=== PATIENT | male | born 1955 | race Caucasian/White ===

== ENCOUNTER 2020-07-30 16:40 | Emergency (ER) | payer MEDICARE, OTHER, SELFPAY ==
[2020-07-30 16:41] VITALS: BP 165/88; PULSE 99; RESP 18; TEMP 36.3; O2SAT 96; BMI 47.6
[2020-07-30 16:43] VITALS: BP 165/88; PULSE 99; RESP 18; TEMP 36.3; O2SAT 96
--- NOTE | 2020-07-30 16:57 | ED.VIS.GEN ---
History of Present Illness Chief Complaint: Complaint Informant: Patient Onset: Days - 2 Days Context: Gradual Onset Current Severity: Mild Maximum Severity: Mild Narrative: Patient presents secondary to dysuria and urgency over the past 2 days. He states he started to notice some pain in his low back and went to be checked. He denies history of UTIs. He does not feel like he is emptying his bladder when he urinates. He denies fever or chills. Past Medical History - Allergies and Home Meds Allergies/Adverse Reactions: Allergies No Known Allergies Allergy (Verified 07/30/20 16:43) Primary Care Physician: Temi Silverman DO [Primary Care Provider] - Past Medical History: None Smoking Status: Never smoker Review of Systems General: Denies: Chills, Fever Eyes: Denies: Visual changes - bilaterally ENT: Denies: Bilateral ear pain Cardiovascular: Denies: Chest pain Respiratory: Denies: Dyspnea, Cough Gastrointestinal: Denies: Abdominal pain, Vomiting, Diarrhea Genitourinary: Reports: Dysuria, Frequency Musculoskeletal: Reports: Back pain Skin: Denies: Rash Hematologic: Denies: Easy bruising, Easy bleeding Allergy: Denies: Uticaria Physical Exam Vital Signs/Narrative: Vital Signs Temp Pulse Resp BP Pulse Ox 07/30/20 16:43 97.3 F L 99 18 165/88 H 96 07/30/20 16:41 97.3 F L 99 18 165/88 H 96 Inital Vital Signs reviewed: Yes General: Well nourished, Well developed Head: Normocephalic ENT: Moist mucous membranes Neck: Supple Cardiovascular: Regular rate, Regular rhythm Respiratory: No distress, CTA bilaterally Abdomen: Soft, Nontender Back: Nontender Skin: Normal color Neurological: Alert, Oriented x3 Psychological: Normal affect Diagnostic/Tx/Re-eval Laboratory Results 07/30/20 16:50 Urine Color Yellow Urine Clarity Cloudy Urine pH 6.0 Ur Specific [place] 1.015 Urine Protein 30 H Urine Glucose (UA) Normal Urine Ketones Negative Urine Occult Blood 250 H Urine Nitrite Negative Urine Bilirubin Negative Urine Urobilinogen Normal Ur Leukocyte Esterase 500 H Urine RBC 10-25 SEEN Urine WBC 50-100 SEEN Ur Squamous Epith Cells 0 SEEN Urine Bacteria 1+ Urine Mucus 0 SEEN - Medical Decision Making Urine culture was sent. Postvoid residual scan is unremarkable. Patient will be covered with Cipro for UTI. He does complain of some right flank pain so therefore antibiotic will be extended a couple extra days to help cover kidneys. ED Disposition - Plan for ED Patient: Disposition: Home or Assisted Living Diagnosis: Cystitis Instructions: ED CYSTITIS Male Adult Prescriptions: Ciprofloxacin [Cipro] 500 mg PO BID #14 tab Transmission Status: Pending to [id number] Referrals: Temi Silverman DO [Primary Care Provider] - 3-5 Days
[2020-07-30 17:07] LABS: Mucous, Urine 0 SEEN /hpf (<or=2+); Squamous Epithelial Cells - UA 0 SEEN /hpf (0-5)
[2020-07-30 17:22] LABS: Color, Urine Yellow (Yellow); Glucose, Dipstick Normal (Normal); Ketone-Dipstick Negative (Negative); Leukocyte Esterase-Dipstick 500 /ul (Negative); Nitrite-Dipstick Negative (Negative); Occult Blood-Urine 250 /ul (Negative); Protein-Dipstick 30 mg/dl (Negative); Specific Gravity, Urine 1.015 (1.002-1.030); Urine Bilirubin Dipstick Negative (Negative); Urine Clarity Cloudy (Clear); Urine Urobilinogen Normal (Normal)
[2020-07-30 17:46] LABS: Red Blood Cells-Urine 10-25 SEEN /hpf (0-5); White Blood Cells 50-100 SEEN /hpf (0-5)
[2020-07-30 17:47] LABS: Bacteria 1+ /hpf (None Seen)
[2020-07-30] MEDS: Ciprofloxacin 500 MG Tablet PO (18:23)
== END 2020-07-30 18:25 | disposition home or self-care (01) ==
PROVIDERS: Emergency Provider Emergency Medicine; PCP Internal Medicine
DX: N30.90 Cystitis, unspecified without hematuria (principal)
CPT/HCPCS: 81001; 87077; 87086; 87088; 87186; 99281; 99283

== ENCOUNTER 2023-02-13 07:45 | Emergency (ER) | payer MEDICARE, OTHER, SELFPAY ==
[2023-02-13 07:47] VITALS: BP 174/106; PULSE 113; RESP 18; TEMP 36.2; O2SAT 95; BMI 47.7
--- NOTE | 2023-02-13 08:12 | ED.VIS.CHEST ---
HPI History of Present Illness Chief Complaint: Shortness of Breath Informant: patient Onset/Context/Timing Onset: Today and Hours (1.5) Activity at onset: sudden Timing: Intermittent and Lasts (Seconds) Quality: Positive for Sharp Location: Substernal Worsened By: Breathing Relieved By: Nothing Associated Symptoms: Negative for Nausea, Vomiting, Diaphoresis, Dyspnea, Cough, Fever, Lightheadedness, Acid Reflux or Palpitations Narrative Narrative: Presents with chest pain that began approxione and half hours prior to arrival. Patient states it began rather suddenly. Patient states it is over the substernal area. Patient describes it as a sharp pain. Patient states it is whenever he takes a deep breath in. Patient states it goes away when he exhales. Patient states it only last for couple of seconds. Patient denies any nausea or vomiting. Patient denies any diaphoresis. Patient denies any shortness of breath or cough. Patient denies any fevers or chills. Patient denies any palpitations. CVD Risk Factors: Negative for Hypertension, Diabetes, Hypercholesterolemia, Family History 1' </=55 or Smoking PE Risk Factors: Negative for Recent Travel/Surgery, Recent Immobilization, Prior DVT or PE, Cancer or OCP + Smoking + >/=35 PFSH PFSH Medical History no medical history no medical history Home Medications nirmatrelvir 300 mg (150 mg x2)-ritonavir 100 mg tablet,dose pack(EUA) (Paxlovid) See Rx Instructions PO .COMPLEX #30 tabs 06/22/22 [Rx Last Taken Unknown] Allergy/AdvReac Type Severity Reaction Status Date / Time No Known Allergies Allergy Verified 02/13/23 07:48 Surgical History no surgical history Social History Smoking Status: Never smoker ROS ROS ED Constitutional Constitutional ED: Denies chills or fever(s) Eyes Eyes: Denies blurry vision or change in vision ENT ENT ED: Denies rhinorrhea or sore throat Cardiovascular Cardiovascular: Reports chest pain; Denies palpitations Respiratory/Chest Respiratory/Chest: Denies cough or dyspnea Gastrointestinal Gastrointestinal: Denies nausea or vomiting Genitourinary Genitourinary ED: Denies dysuria or hematuria Musculoskeletal Musculoskeletal: Denies back pain or neck pain Integumentary Denies abscess or rash Neurologic Neurologic: Denies headache(s) or weakness Allergic/Immunologic Allergic/Immunologic ED: Denies mouth swelling or urticaria EXAM Physical Exam Const Vital Signs: 02/13/23 07:47 02/13/23 08:35 02/13/23 08:35 Temperature 97.1 F L Temperature Source Temporal Pulse Rate 113 H 96 Respiratory Rate 18 14 Respiratory Effort Respiratory Depth Respiratory Pattern Blood Pressure 174/106 H 146/98 H Blood Pressure Mean 128 114 Pulse Ox 95 Oxygen Delivery Method Room Air Room Air 02/13/23 08:35 02/13/23 11:15 Temperature Temperature Source Pulse Rate 94 Respiratory Rate 14 Respiratory Effort Short of Breath Respiratory Depth Normal Respiratory Pattern Normal Blood Pressure 142/90 H Blood Pressure Mean 107 Pulse Ox 96 Oxygen Delivery Method Room Air Room Air Positive well nourished and well developed General Appearance ED: well developed HEENT Reports moist mucous membranes Neck supple and no JVD Resp normal respiratory effort and clear to auscultation bilaterally Cardio regular rate and regular rhythm GI normal to inspection, nondistended, normoactive bowel sounds and non-tender Palpation: soft Extremity normal to inspection General Extremety ED: Yes edema; Negative for tenderness General Extremity: edema bilateral lower extremity Details: trace Neuro oriented x3, CN's II-XII intact bilaterally and no sensory deficits noted Sensorium / Orientation: awake and alert Motor Exam: strength 5/5 throughout Psych mental status grossly normal Skin no rashes or lesions noted Heart Score History: Slightly/Non-Suspicious ECG: Normal Age: >/= 65 years Risk Factors: No Risk Factors Troponin: </= Normal Limit Score: 2 MDM MDM MDM Narrative Medical decision making narrative: Differential diagnosis includes cardiac dysrhythmia, cardiac ischemia, pulmonary embolism, musculoskeletal pain, anxiety, and electrolyte abnormality. EKG will be obtained to assess for cardiac dysrhythmia and cardiac ischemia. Chest x-ray will be obtained to assess for pneumonia and pneumothorax. CBC will be obtained to assess for leukocytosis and anemia. Basic metabolic profile will be obtained to assess for electrolyte abnormality and renal function. High-sensitivity troponin will be obtained to assess for cardiac ischemia. 2-hour repeat high-sensitivity troponin will be obtained to assess for ongoing cardiac ischemia. D-dimer will be obtained to assess for pulmonary embolism. Lab Data Attestation: I reviewed the patient's lab results. Lab results narrative: CBC was reviewed and was within normal limits. Basic metabolic profile was reviewed. Glucose was mildly elevated at 201. The remainder was within normal limits. High-sensitivity troponin was reviewed and was normal at 8. D-dimer was reviewed and was normal at 0.32. 2-hour repeat high-sensitivity troponin was reviewed and was also negative at 8. Labs: Laboratory Results - last 24 hr 02/13/23 02/13/23 02/13/23 08:30 08:30 08:30 WBC 9.9 RBC 5.37 Hgb 15.8 Hct 48.3 MCV 89.9 MCH 29.4 MCHC 32.7 RDW Std Deviation 44.3 H RDW Coeff of Mo 13.5 Plt Count 249 MPV 8.9 Immature Gran % (Auto) 0.900 Neut % (Auto) 78.8 H Lymph % (Auto) 13.3 L [place] % (Auto) 5.8 Eos % (Auto) 0.6 Baso % (Auto) 0.6 Absolute Neuts (auto) 7.8 H Absolute Lymphs (auto) 1.32 Nucleated RBC % 0 D-Dimer Quant (PE/DVT) 0.32 Sodium 139 Potassium 3.6 Chloride 106 Carbon Dioxide 26.0 Anion Gap 7 BUN 22 H Creatinine 0.73 Estim Creat Clear Calc 71.99 Est GFR (MDRD) Af Amer 137 Est GFR (MDRD) Non-Af 113 BUN/Creatinine Ratio 30.1 H Glucose 201 H Calcium 9.1 Troponin I High Sens 8 02/13/23 10:49 WBC RBC Hgb Hct MCV MCH MCHC RDW Std Deviation RDW Coeff of Mo Plt Count MPV Immature Gran % (Auto) Neut % (Auto) Lymph % (Auto) [place] % (Auto) Eos % (Auto) Baso % (Auto) Absolute Neuts (auto) Absolute Lymphs (auto) Nucleated RBC % D-Dimer Quant (PE/DVT) Sodium Potassium Chloride Carbon Dioxide Anion Gap BUN Creatinine Estim Creat Clear Calc Est GFR (MDRD) Af Amer Est GFR (MDRD) Non-Af BUN/Creatinine Ratio Glucose Calcium Troponin I High Sens 8 Radiography Chest X-Ray - ED: 1 View, Read by ED Physician, Read by Radiologist and No Acute Disease Diagnostic Testing: Clinical Impression(s) from Imaging Studies Chest X-Ray 02/13/23 08:19 IMPRESSION: Mild increased markings at the left lung base suggestive of linear atelectasis and/or scarring Electronically Signed: Kenneth Harry MD at 8:58 EDT , Portable 1 view chest x-ray was obtained. On my independent interpretation, lung moreno show left basilar atelectasis versus scarring. There is normal cardiac silhouette. Bony thorax is normal. There is no acute process noted. Radiologist also interpreted the x-ray and agrees. EKG Initial EKG: Attestation: I personally reviewed and interpreted this EKG as follows: Interpretation: No Acute Injury Pattern and Sinus Tachycardia (109) Comments: EKG was obtained. On my independent interpretation, it showed a sinus tachycardia with a rate of 109. DC interval, QRS interval, and QTc intervals were all normal. [place] was normal. There are no acute ST or T wave changes. Prior EKG tracings: not available for review Prior: No Prior Treatment and Re-Evaluation :: Patient was given aspirin here. Patient feels better on reevaluation. Patient was advised of his findings. Patient was instructed to follow-up with his primary care physician in 5 to 7 days for further evaluation. Patient has a HEART score of 2. Patient was advised that this is low risk for acute cardiac event. Patient understands and is agreeable with the plan. All questions were answered. Discharge Plan Triage Chief Complaint: Shortness of Breath ED Provider: José Manuel Ac Dx/Rx/DC Orders Clinical Impression: Chest pain, Morbid obesity with BMI of 45.0-49.9, adult Instructions: ED Chest Pain, Uncertain Cause Prescriptions: No Action Paxlovid (EUA) 300 mg (150 mg x 2)-100 mg tablets,dose pack See Rx Instructions PO .COMPLEX Qty: 30 0RF Rx Instructions: take TWO 150 mg tablets of nirmatrelvir with ONE 100 mg tablet of ritonavir twice daily for 5 days PO Primary Care Provider: Temi Silverman Referrals: Temi Silverman, DO [Primary Care Provider] - 5-7 Days Disposition Disposition: Home, Self Care
--- NOTE | 2023-02-13 08:19 | RAD_ITS ---
STUDY: X-RAY CHEST REASON FOR EXAM: Male, 68 years old. Chest pain TECHNIQUE: Single AP portable view of the chest. COMPARISON: None. FINDINGS: EKG electrodes are seen. Mild elevation of the right hemidiaphragm. Minimal increased markings at the left lung base suggestive of atelectasis and/or scarring. There is no demonstrated pleural abnormality. Normal size heart. Normal mediastinum and mike. Normal visualized pulmonary arteries. There is atherosclerotic tortuosity of the aortic arch and descending thoracic aorta. There are degenerative changes of the visualized thoracic spine. Normal visualized ribs, clavicles, and shoulders. There is no demonstrated abnormality of the visualized soft tissue structures of the upper abdomen. RAD/Chest 1 View (Portable) IMPRESSION: Mild increased markings at the left lung base suggestive of linear atelectasis and/or scarring Electronically Signed: Kenneth Harry MD at 8:58 EDT ,
--- NOTE | 2023-02-13 08:21 | NURSING ---
NO OLD EKGS
[2023-02-13 08:35] VITALS: BP 146/98; PULSE 96; RESP 14
[2023-02-13] MEDS: Aspirin 81 MG TAB.CHEW 324 MG PO (08:37)
[2023-02-13 08:46] LABS: Absolute Lymphocyte Count 1.32 X10^3/uL (0.83-4.51); Absolute Neutrophil Count 7.8 X10^3/uL (2.0-7.7); Basophil# 0.06 X10^3/uL; Basophil% 0.6 % (0-1); Eosinophil# 0.06 X10^3/uL; Eosinophils% 0.6 % (0-5); Hematocrit 48.3 % (40-54); Hemoglobin 15.8 g/dL (13.0-16.5); Lymphocyte # 1.32 X10^3/ul (0.83-4.51); Lymphocyte % 13.3 % (19-41); Mean Corp Hgb Conc 32.7 g/dL (32-36); Mean Corpuscular Hgb 29.4 pg (27.0-32.0); Mean Corpuscular Volume 89.9 fL (80-94); Mean Platelet Vol. 8.9 fl (6.2-12.0); Monocyte# 0.57 X10^3/uL; Monocyte% 5.8 % (0-10); NRBC Flagged by Analyzer 0 % (0-5); Neutrophil % 78.8 % (47-70); Platelet Count 249 K/mm3 (150-450); RBC Distribution Width CV 13.5 % (11.6-14.6); RBC Distribution Width SD 44.3 fl (35.1-43.9); Red Blood Count 5.37 M/mm3 (4.6-6.2); White Blood Count 9.9 K/mm3 (4.4-11.0)
[2023-02-13 08:56] LABS: D-Dimer Quantitative (DVT/PE) 0.32 FEU/ug/m (0.27-0.49)
[2023-02-13 09:02] LABS: Anion Gap 7 (5-15); BUN 22 mg/dL (7-18); BUN/Creat Ratio 30.1 RATIO (10-20); Calcium,Total 9.1 mg/dL (8.5-10.1); Chloride 106 mmol/L (98-107); Creatinine, Serum 0.73 mg/dL (0.70-1.30); EST Glomerular Filtration Rate 113 mL/min (>60); Est Glom Filt Rate - Afr Amer 137 mL/min (>60); Estimated Creatinine Clearance 71.99 ml/min; Glucose 201 mg/dL (74-106); Potassium 3.6 mmol/L (3.5-5.1); Sodium Level 139 mmol/L (136-145); Troponin-I HS (w/2H Reflex) 8 pg/mL (3.0-78.0)
[2023-02-13 10:40] LABS: Reflex Troponin-HS? (from REC) Y
[2023-02-13 11:15] VITALS: BP 142/90; PULSE 94; RESP 14; O2SAT 96
[2023-02-13 11:17] LABS: Troponin-I HS 8 pg/mL (3.0-78.0)
== END 2023-02-13 12:17 | disposition home or self-care (01) ==
PROVIDERS: Emergency Provider Emergency Medicine; PCP Internal Medicine; Visit Provider Emergency Medicine
DX: R06.02 Shortness of breath (principal); E66.01 Morbid (severe) obesity due to excess calories; Z68.42 Body mass index [BMI] 45.0-49.9, adult; R07.9 Chest pain, unspecified
CPT/HCPCS: 71045; 80048; 84484; 85025; 85379; 93005; 99285; A4216

== ENCOUNTER 2023-09-09 08:38 | Inpatient (IN) | payer MEDICARE, OTHER, SELFPAY ==
[2023-09-09 08:40] VITALS: BP 187/105; PULSE 110; RESP 16; TEMP 36.6; O2SAT 95; BMI 45.1
--- NOTE | 2023-09-09 09:01 | EKG12_ITS ---
Test Reason : Blood Pressure : / mmHG Vent. Rate : 094 BPM Atrial Rate : 094 BPM P-R Int : 156 ms QRS Dur : 074 ms QT Int : 336 ms P-R-T Axes : 041 011 034 degrees QTc Int : 420 ms Normal sinus rhythm Normal ECG Confirmed by CHRISTINA SHOOK, MARION ([id number]), editor farm journal ZEB MCKENNA ([id number]) on 09/10/2023 10:46:45 AM Referred By: Confirmed By:MARION VASQUEZ MD
--- NOTE | 2023-09-09 09:02 | EX.ED.DYSGE1 ---
HPI History of Present Illness Chief Complaint: General Illness Narrative Narrative: 68-year-old male with no reported past medical history presenting with polyuria, polydipsia, dizziness, lightheadedness, shortness of breath with exertion. Onset was about 3 days ago. Patient reports that he does not have any medical problems and takes no meds on a regular basis. He last saw his own primary care doctor about a year ago when his doctor left town. He states he gets his care from the urgent care. He states he only had an ingrown toenail that was a problem. Denies fevers, chills. Denies nausea or vomiting. Denies diarrhea or constipation. Denies chest pain or abdominal pain. PFSH PFSH Home Medications acetaminophen 500 mg tablet 1,000 mg PO Q6H PRN headache 09/09/23 [History Last Taken 09/09/23] Allergy/AdvReac Type Severity Reaction Status Date / Time No Known Allergies Allergy Verified 09/09/23 08:41 Social History Smoking Status: Never smoker ROS [facility] ED Constitutional Constitutional ED: Denies chills, fever(s) or sweats Eyes Eyes: Denies blurry vision or change in vision ENT ENT ED: Denies ear pain or sore throat Cardiovascular Cardiovascular: Denies chest pain, palpitations or racing heartbeat Respiratory/Chest Respiratory/Chest: Reports dyspnea; Denies cough or sputum Gastrointestinal Gastrointestinal: Denies abdominal pain, constipation, diarrhea, nausea or vomiting Genitourinary Genitourinary ED: Denies dysuria, hematuria or urinary frequency Musculoskeletal Musculoskeletal: Denies arthralgias, myalgias or neck pain Integumentary Denies abscess, Abrasions or rash Neurologic Neurologic: Denies headache(s), paresthesias or weakness Psychiatric Psychiatric: Denies anxiety, depression, suicidal ideation or suicidal thoughts Endocrine Endocrinology: Reports polydipsia and polyuria EXAM Physical Exam Const Vital Signs: 09/09/23 08:40 09/09/23 08:59 09/09/23 10:38 Temperature 97.9 F 97.6 F L Temperature Source Temporal Pulse Rate 110 H 72 Respiratory Rate 16 14 Respiratory Effort Normal Respiratory Pattern Normal Blood Pressure 187/105 H 142/78 H Blood Pressure Mean 132 99 Pulse Ox 95 97 Oxygen Delivery Method Room Air Positive well nourished General Appearance ED: NAD; Negative for pallor HEENT Reports dry mucous membranes Mouth ED: Yes dry mucous membranes Mouth: dry mucous membranes Eyes PERRL and EOMs intact bilaterally General Eye ED: Negative for pale conjunctiva Chest Wall inspection of chest normal Resp normal respiratory effort and clear to auscultation bilaterally Auscultation: Negative for rales, rhonchi or wheezes Cardio regular rhythm Rate: tachycardic GI normal to inspection, nondistended, normoactive bowel sounds Back/Spine no CVA tenderness Extremity normal to inspection Neuro oriented x3 and CN's II-XII intact bilaterally Sensorium / Orientation: alert Motor Exam: strength 5/5 throughout Psych mental status grossly normal Skin no rashes or lesions noted and no wounds General Skin Exam: Negative for jaundice or pallor MDM MDM MDM Narrative Medical decision making narrative: 68-year-old male presenting with dyspnea, polyuria, polydipsia, lightheadedness. Differential includes Pneumonia, CHF, ACS, dysrhythmia, dehydration, electrolyte abnormalities, hyperglycemia, new onset diabetes, anemia. CBC was obtained to assess white blood cell count, hemoglobin, platelets. CMP to assess liver function, renal function, glucose, anion gap. High-sensitivity troponin EKG to assess for dysrhythmia/ischemia. Chest x-ray to rule out pneumonia or CHF. Urinalysis to assess for UTI and urine ketones. CMP improves will also be added. Patient medicated with a liter of normal saline. BG T was performed at bedside and shows blood sugar 529. CBC unremarkable. BMP shows glucose of 581 without anion gap. Magnesium within normal limits. A1c 12.3. LFTs are normal with exception of 260 alkaline phosphatase. Troponin is normal. EKG on my interpretation shows normal sinus rhythm ventricular rate of 94 bpm without sign of ischemic change or ectopy. Chest x-ray shows no acute process on my interpretation. Given that patient has no follow-up because he does not a primary care doctor and he has new onset diabetes I discussed this with the hospitalist for admission so he can medicate patient and treatment for his diabetes. Patient amenable to this plan. Impression: 1. New onset diabetes 2. Dizziness 3. Polyuria 4. Polydipsia 5. Dyspnea Lab Data Attestation: I reviewed the patient's lab results. Labs: Laboratory Results - last 24 hr 09/09/23 09/09/23 09/09/23 09:03 09:07 09:12 WBC 6.4 RBC 5.15 Hgb 15.3 Hct 46.1 MCV 89.5 MCH 29.7 MCHC 33.2 RDW Std Deviation 43.4 RDW Coeff of Mo 13.2 Plt Count 249 MPV 9.8 Immature Gran % (Auto) 2.300 H Neut % (Auto) 56.6 Lymph % (Auto) 29.9 [place] % (Auto) 8.6 Eos % (Auto) 1.3 Baso % (Auto) 1.3 H Absolute Neuts (auto) 3.6 Absolute Lymphs (auto) 1.91 Nucleated RBC % 0 Sodium 132 L Potassium 4.5 Chloride 98 Carbon Dioxide 26.0 Anion Gap 8 BUN 21 H Creatinine 1.03 Estim Creat Clear Calc 72.09 Est GFR (MDRD) Af Amer 92 Est GFR (MDRD) Non-Af 76 BUN/Creatinine Ratio 20.4 H Glucose 581 H* Hemoglobin A1c 12.3 H Calcium 9.7 Magnesium 2.1 Total Bilirubin 0.70 AST 19 ALT 33 Alkaline Phosphatase 260 H Troponin I High Sens 8 B-Natriuretic Peptide 21.8 Total Protein 6.8 Albumin 3.2 Globulin 3.6 Albumin/Globulin Ratio 0.9 Urine Color Yellow Urine Clarity Clear Urine pH 6.0 Ur Specific [place] 1.015 Urine Protein Negative Urine Glucose (UA) 1000 H Urine Ketones 5 H Urine Occult Blood Negative Urine Nitrite Negative Urine Bilirubin Negative Urine Urobilinogen Normal Ur Leukocyte Esterase Negative Urine RBC 0 SEEN Urine WBC 0 SEEN Ur Squamous Epith Cells 0 SEEN Urine Bacteria 0 SEEN Urine Mucus 0 SEEN Acetone Level NEGATIVE POC Glucose > 500 H* 09/09/23 10:29 WBC RBC Hgb Hct MCV MCH MCHC RDW Std Deviation RDW Coeff of Mo Plt Count MPV Immature Gran % (Auto) Neut % (Auto) Lymph % (Auto) [place] % (Auto) Eos % (Auto) Baso % (Auto) Absolute Neuts (auto) Absolute Lymphs (auto) Nucleated RBC % Sodium Potassium Chloride Carbon Dioxide Anion Gap BUN Creatinine Estim Creat Clear Calc Est GFR (MDRD) Af Amer Est GFR (MDRD) Non-Af BUN/Creatinine Ratio Glucose Hemoglobin A1c Calcium Magnesium Total Bilirubin AST ALT Alkaline Phosphatase Troponin I High Sens B-Natriuretic Peptide Total Protein Albumin Globulin Albumin/Globulin Ratio Urine Color Urine Clarity Urine pH Ur Specific [place] Urine Protein Urine Glucose (UA) Urine Ketones Urine Occult Blood Urine Nitrite Urine Bilirubin Urine Urobilinogen Ur Leukocyte Esterase Urine RBC Urine WBC Ur Squamous Epith Cells Urine Bacteria Urine Mucus Acetone Level POC Glucose 471 H* Radiography Diagnostic Testing: Clinical Impression(s) from Imaging Studies Chest X-Ray 09/09/23 09:20 IMPRESSION: Stable cardiomegaly with marked aortic tortuosity and calcification. No active or acute cardiopulmonary disease. Electronically Signed: Hardeep Tolbert MD at 9:33 EST , Discharge Plan Disposition Disposition: Acute Care Hospital [facility] Discharge Date/Time: 09/09/23 11:33
[2023-09-09] MEDS: 0.9% Normal Saline (1000mL) 1,000 ML 999 ML IV (09:12)
--- NOTE | 2023-09-09 09:20 | RAD_ITS ---
STUDY: X-RAY CHEST REASON FOR EXAM: Male, 68 years old. Dyspnea. TECHNIQUE: Single frontal view of the chest. COMPARISON: February 13, 2023. FINDINGS: Stable cardiomegaly, aortic tortuosity, prominent central pulmonary arteries, elevation of both hemidiaphragm and linear atelectasis/scarring at both bases, all unchanged. No new or acute finding. No abnormality of the visualized soft tissue structures of the upper abdomen. RAD/Chest 1 View (Portable) IMPRESSION: Stable cardiomegaly with marked aortic tortuosity and calcification. No active or acute cardiopulmonary disease. Electronically Signed: Hardeep Tolbert MD at 9:33 EST ,
[2023-09-09 09:22] LABS: Bedside Glucose > 500 mg/dL (74-106)
[2023-09-09 09:26] LABS: Bacteria 0 SEEN /hpf (None Seen); Mucous, Urine 0 SEEN /hpf (<or=2+); Red Blood Cells-Urine 0 SEEN /hpf (0-5); Squamous Epithelial Cells - UA 0 SEEN /hpf (0-5); White Blood Cells 0 SEEN /hpf (0-5)
[2023-09-09 09:29] LABS: Absolute Lymphocyte Count 1.91 X10^3/uL (0.83-4.51); Absolute Neutrophil Count 3.6 X10^3/uL (2.0-7.7); Basophil# 0.08 X10^3/uL; Basophil% 1.3 % (0-1); Eosinophil# 0.08 X10^3/uL; Eosinophils% 1.3 % (0-5); Hematocrit 46.1 % (40-54); Hemoglobin 15.3 g/dL (13.0-16.5); Lymphocyte # 1.91 X10^3/ul (0.83-4.51); Lymphocyte % 29.9 % (19-41); Mean Corp Hgb Conc 33.2 g/dL (32-36); Mean Corpuscular Hgb 29.7 pg (27.0-32.0); Mean Corpuscular Volume 89.5 fL (80-94); Mean Platelet Vol. 9.8 fl (6.2-12.0); Monocyte# 0.55 X10^3/uL; Monocyte% 8.6 % (0-10); NRBC Flagged by Analyzer 0 % (0-5); Neutrophil # 3.62 X10^3/uL (2.7-7.7); Neutrophil % 56.6 % (47-70); Platelet Count 249 K/mm3 (150-450); RBC Distribution Width CV 13.2 % (11.6-14.6); RBC Distribution Width SD 43.4 fl (35.1-43.9); Red Blood Count 5.15 M/mm3 (4.6-6.2); White Blood Count 6.4 K/mm3 (4.4-11.0)
[2023-09-09 09:42] LABS: Color, Urine Yellow (Yellow); Glucose, Dipstick 1000 mg/dl (Normal); Ketone-Dipstick 5 mg/dl (Negative); Leukocyte Esterase-Dipstick Negative /ul (Negative); Nitrite-Dipstick Negative (Negative); Occult Blood-Urine Negative /ul (Negative); Protein-Dipstick Negative (Negative); Specific Gravity, Urine 1.015 (1.002-1.030); Urine Bilirubin Dipstick Negative (Negative); Urine Clarity Clear (Clear); Urine Urobilinogen Normal (Normal)
[2023-09-09 10:00] LABS: ALB/GLOB Ratio 0.9 RATIO (0.9-2.4); AST(SGOT) 19 U/L (15-37); Alanine Aminotransfer ALT/SGPT 33 U/L (16-61); Albumin, Serum 3.2 g/dL (3.2-5.0); Alkaline Phosphatase 260 U/L (45-117); Anion Gap 8 (5-15); BUN 21 mg/dL (7-18); BUN/Creat Ratio 20.4 RATIO (10-20); Calcium,Total 9.7 mg/dL (8.5-10.1); Chloride 98 mmol/L (98-107); Creatinine, Serum 1.03 mg/dL (0.70-1.30); EST Glomerular Filtration Rate 76 mL/min (>60); Est Glom Filt Rate - Afr Amer 92 mL/min (>60); Estimated Creatinine Clearance 72.09 ml/min; Globulin 3.6 g/dL (2.2-4.2); Glucose 581 mg/dL (74-106); Magnesium 2.1 mg/dL (1.6-2.6); Potassium 4.5 mmol/L (3.5-5.1); Protein, Total 6.8 g/dL (6.4-8.2); Sodium Level 132 mmol/L (136-145); Troponin-I HS 8 pg/mL (3.0-78.0)
[2023-09-09 10:04] LABS: Hemoglobin A1c 12.3 % (3.8-5.6)
[2023-09-09 10:14] LABS: BNP,B-Type NATRIURETIC PEPTIDE 21.8 pg/mL (0-100)
[2023-09-09 10:20] VITALS: BP 116/96; PULSE 85; RESP 16; TEMP 36.4; O2SAT 94
--- NOTE | 2023-09-09 10:26 | HP.PCM_ITS ---
HPI - General General Date of Admission: 09/09/23 Date of Service: 09/09/23 Chief Complaint: GENERALISED ILLNESS HPI Narrative KATHY GANDHI, is a 68 M with no significant PMH who presents with a complaint of dizziness, lightheadedness, polyuria, polydipsia and shortness of breath. His symptoms have been ongoing for about 3 days prior to admission. He saw his PCP last about a year ago. He has been getting care from an urgent care facility. He denied any palpitations, dizziness, abdominal pain, nausea or vomiting or any other symptoms. Review of systems is otherwise negative. Vitals in the ED were BP of 187/105, MT of 110, RR of 16 and temp of 97.9F. He was saturating at 95% on room air. CBC was unremarkable. BMP was significant for sodium of 132 and glucose of 581. A1C checked in ED was 12.3. EKG showed no acute ST changes and CXR showed no acute cardiopulmonary process. He is being admitted to be managed for hyperglycemia due to newly diagnosed diabetes. PFSH Home Medications acetaminophen 500 mg tablet 1,000 mg PO Q6H PRN headache 09/09/23 [History Last Taken 09/09/23] insulin glargine 100 unit/mL (3 mL) subcutaneous pen (Lantus Solostar U-100 Insulin) 10 unit (0.1 mL) subcut QPM #15 mL 09/10/23 [Rx Last Taken Unknown] metformin 500 mg tablet 500 mg PO BIDCM #60 tabs 09/10/23 [Rx Last Taken Unknown] Allergy/AdvReac Type Severity Reaction Status Date / Time No Known Allergies Allergy Verified 09/09/23 08:41 Social History Smoking Status: Never smoker ROS Constitutional Constitutional: Reports anorexia, fatigue, malaise and weakness; Denies change in weight, chills or fever(s) Eyes Eyes: Denies change in vision ENT HEENT: Denies dysphagia, headache(s), sore throat or throat swelling Cardiovascular Cardiovascular: Denies chest pain, edema, orthopnea, palpitations, paroxysmal nocturnal dyspnea or syncope Respiratory/Chest Respiratory/Chest: Denies cough, shortness of breath at rest or shortness of breath with exertion Gastrointestinal Gastrointestinal: Denies abdominal pain, nausea or vomiting Genitourinary Genitourinary: Denies dysuria Musculoskeletal Musculoskeletal: Denies back pain or joint pain Neurologic Neurologic: Denies confusion, dizziness, focal weakness or headache(s) Psychiatric Psychiatric: Denies anxiety or depression Endocrine Endocrinology: Denies change in body appearance Vital Signs Vital Signs Vital Signs: 09/09/23 08:40 09/09/23 08:59 Temperature 97.9 F Temperature Source Temporal Pulse Rate 110 H Respiratory Rate 16 Respiratory Effort Normal Respiratory Pattern Normal Blood Pressure 187/105 H Blood Pressure Mean 132 Pulse Ox 95 Oxygen Delivery Method Room Air Weight Weight: 323 lb 4 oz Body Mass Index (BMI) 45.1 Physical Exam Const alert, oriented x3 and no apparent distress General Appearance: cooperative HEENT normocephalic, head/scalp atraumatic, moist oral mucous membranes and oropharynx normal Eyes PERRL and EOMs intact bilaterally Neck no lymphadenopathy and supple Lymph Lymphatic: no lymphadenopathy noted and no lymphedema noted Resp normal respiratory effort, normal air movement and clear to auscultation bilaterally Cardio regular rate, regular rhythm, S1 normal heart sound, S2 normal heart sound and no murmurs GI normal to inspection, nondistended, normoactive bowel sounds, soft to palpation, non-tender and non-distended Extremity normal capillary refill, no clubbing, cyanosis or edema and no calf tenderness General Extremity: no tenderness to palpation of joints or extremities Skin General Skin Exam: no breakdown and turgor normal Neuro CN's II-XII intact bilaterally, no focal motor deficits, no sensory deficits noted and deep tendon reflexes 2+ bilaterally Motor Exam: strength 5/5 throughout and general weakness Psych thought process normal and cooperative Appearance: appropriate Results Lab / Micro Data 09/10/23 06:34 09/10/23 06:34 Labs: Laboratory Results - last 24 hr 09/09/23 09:03: POC Glucose > 500 H* 09/09/23 09:07: WBC 6.4, RBC 5.15, Hgb 15.3, Hct 46.1, MCV 89.5, MCH 29.7, MCHC 33.2, RDW Std Deviation 43.4, RDW Coeff of Mo 13.2, Plt Count 249, MPV 9.8, Immature Gran % (Auto) 2.300 H, Neut % (Auto) 56.6, Lymph % (Auto) 29.9, [place] % (Auto) 8.6, Eos % (Auto) 1.3, Baso % (Auto) 1.3 H, Absolute Neuts (auto) 3.6, Absolute Lymphs (auto) 1.91, Nucleated RBC % 0, Sodium 132 L, Potassium 4.5, Chloride 98, Carbon Dioxide 26.0, Anion Gap 8, BUN 21 H, Creatinine 1.03, Estim Creat Clear Calc 72.09, Est GFR (MDRD) Af Amer 92, Est GFR (MDRD) Non-Af 76, BUN/Creatinine Ratio 20.4 H, Glucose 581 H*, Hemoglobin A1c 12.3 H, Calcium 9.7, Magnesium 2.1, Total Bilirubin 0.70, AST 19, ALT 33, Alkaline Phosphatase 260 H, Troponin I High Sens 8, B-Natriuretic Peptide 21.8, Total Protein 6.8, Albumin 3.2, Globulin 3.6, Albumin/Globulin Ratio 0.9, Acetone Level NEGATIVE 09/09/23 09:12: Urine Color Yellow, Urine Clarity Clear, Urine pH 6.0, Ur Specific [place] 1.015, Urine Protein Negative, Urine Glucose (UA) 1000 H, Urine Ketones 5 H, Urine Occult Blood Negative, Urine Nitrite Negative, Urine Bilirubin Negative, Urine Urobilinogen Normal, Ur Leukocyte Esterase Negative, Urine RBC 0 SEEN, Urine WBC 0 SEEN, Ur Squamous Epith Cells 0 SEEN, Urine Bacteria 0 SEEN, Urine Mucus 0 SEEN Imagaing Radiology Impression Chest X-Ray 09/09/23 09:20 IMPRESSION: Stable cardiomegaly with marked aortic tortuosity and calcification. No active or acute cardiopulmonary disease. Electronically Signed: Hardeep Tolbert MD at 9:33 EST , Assessment & Plan Assessment/Plan (1) Hyperglycemia due to diabetes mellitus: PLAN: Plan #Hyperglycemia due to newly diagnosed diabetes mellitus * admit to med surg * admitted with complaints of generalised malaise, frequency, polyuria and polydipsia. * A1C is 12/3 nad blood glucose is 581. * bicarb is 26 * hydrate aggressively with iVF NS @ 150cc/hr * give SQ lispro 15 units x 1 and recheck in an hour. Hold of on insulin drip for now * will need to be started on metformin nad SQ lantus once hyperglycemia resolv es. * #Elevated BP * BP is up in the 180s systolic. Not a known hypertensive but he has not followed with his PCP in over a year. * IV hydralazine 10 mg every 6 hours as needed. If blood pressure remains elevated will start on oral medication. * Prophylaxis: Lovenox CODE STATUS: Full code * Patient counseled extensively about different types of CODE STATUS including full code, DNR CCA and DNR CCA. Patient elects to be full code. Total [id number] time 16 minutes. Charges/Coding Visit Charges Inpatient E&M: 97653 Init Hosp L3 Procedures Hospitalists Procedures: 33555 Advncd Care Plan 30 Min
[2023-09-09 10:38] VITALS: BP 142/78; PULSE 72; RESP 14; TEMP 36.4; O2SAT 97
[2023-09-09 10:48] LABS: Bedside Glucose 471 mg/dL (74-106)
[2023-09-09 11:22] VITALS: BMI 44.9
[2023-09-09 12:56] LABS: Bedside Glucose 386 mg/dL (74-106)
[2023-09-09] MEDS: 0.9% Normal Saline (1000mL) 1,000 ML 125 ML IV (13:18)
[2023-09-09] MEDS: Insulin Glargine-YFGN 100 UNIT/ML Pen 10 UNIT SC (14:02)
[2023-09-09] MEDS: Acetaminophen 325 MG Tablet 650 MG PO ×2 (16:14→22:03)
[2023-09-09] MEDS: metFORMIN HCl 500 MG Tablet PO (16:15)
[2023-09-09 16:42] LABS: Bedside Glucose > 500 mg/dL (74-106)
[2023-09-09] MEDS: Insulin Lispro 100 UNIT/ML INSULN.PEN 20 UNIT SC (16:56)
[2023-09-09 19:19] VITALS: BP 156/67; PULSE 76; RESP 18; TEMP 37; O2SAT 96
[2023-09-09] MEDS: 0.9% Normal Saline (1000mL) 1,000 ML 150 ML IV (21:36)
[2023-09-09] MEDS: Insulin Lispro 100 UNIT/ML INSULN.PEN SC (21:40)
[2023-09-10 00:56] LABS: Bedside Glucose 202 mg/dL (74-106)
[2023-09-10] MEDS: Insulin Lispro 100 UNIT/ML INSULN.PEN SC ×2 (06:09→10:18)
[2023-09-10 06:12] VITALS: BP 143/84; PULSE 80; RESP 16; TEMP 36.5; O2SAT 94
[2023-09-10 06:36] LABS: Bedside Glucose 293 mg/dL (74-106)
[2023-09-10 07:21] LABS: Absolute Lymphocyte Count 1.62 X10^3/uL (0.83-4.51); Absolute Neutrophil Count 3.8 X10^3/uL (2.0-7.7); Basophil# 0.06 X10^3/uL; Basophil% 0.9 % (0-1); Eosinophil# 0.15 X10^3/uL; Eosinophils% 2.4 % (0-5); Hematocrit 43.9 % (40-54); Hemoglobin 14.4 g/dL (13.0-16.5); Lymphocyte # 1.62 X10^3/ul (0.83-4.51); Lymphocyte % 25.6 % (19-41); Mean Corp Hgb Conc 32.8 g/dL (32-36); Mean Corpuscular Hgb 29.9 pg (27.0-32.0); Mean Corpuscular Volume 91.3 fL (80-94); Mean Platelet Vol. 9.5 fl (6.2-12.0); Monocyte# 0.54 X10^3/uL; Monocyte% 8.5 % (0-10); NRBC Flagged by Analyzer 0 % (0-5); Neutrophil # 3.81 X10^3/uL (2.7-7.7); Neutrophil % 60.2 % (47-70); Platelet Count 219 K/mm3 (150-450); RBC Distribution Width CV 13.7 % (11.6-14.6); RBC Distribution Width SD 45.9 fl (35.1-43.9); Red Blood Count 4.81 M/mm3 (4.6-6.2); White Blood Count 6.3 K/mm3 (4.4-11.0)
[2023-09-10] MEDS: metFORMIN HCl 500 MG Tablet PO (07:33)
[2023-09-10 07:43] LABS: Anion Gap 4 (5-15); BUN 21 mg/dL (7-18); BUN/Creat Ratio 29.7 RATIO (10-20); Calcium,Total 8.1 mg/dL (8.5-10.1); Chloride 106 mmol/L (98-107); Creatinine, Serum 0.71 mg/dL (0.70-1.30); EST Glomerular Filtration Rate 117 mL/min (>60); Est Glom Filt Rate - Afr Amer 142 mL/min (>60); Estimated Creatinine Clearance 74.25 ml/min; Glucose 293 mg/dL (74-106); Potassium 3.6 mmol/L (3.5-5.1); Sodium Level 137 mmol/L (136-145)
[2023-09-10 08:32] LABS: Cholesterol 187 mg/dL (200); High Density Lipoprotein 36 mg/dL; Triglycerides 147 mg/dL; Very Low Density Lipoprotein 29 mg/dL (5-40)
[2023-09-10 09:42] VITALS: BP 146/87; PULSE 72; RESP 16; TEMP 36.6; O2SAT 97
[2023-09-10] MEDS: Insulin Glargine-YFGN 100 UNIT/ML Pen 10 UNIT SC (10:18)
[2023-09-10] MEDS: Enoxaparin 40 MG/0.4 ML Syringe SC (10:35)
[2023-09-10 10:47] LABS: Bedside Glucose 239 mg/dL (74-106)
[2023-09-10 11:33] VITALS: BP 145/78; PULSE 73; RESP 14; TEMP 36.9; O2SAT 93
--- NOTE | 2023-09-10 12:04 | PHA.DC.MC.R ---
Pharmacy [facility] Pharmacy Service has performed discharge medication reconciliation and counseling for this patient. The patient's discharge medication list was reviewed for discrepancies and discrepancies were resolved. The patient was counseled on the following discharge medications and changes in medications for homegoing were reviewed. The Reason for Use, instructions for use, and potential side effects were reviewed for all new medications. The patient's questions regarding all of their medications were answered. 1. Lantus 10 units SC daily 2. Metformin 500 mg PO BID with meals The patient was able to verbally demonstrate an understanding of their discharge medications. The patient was counselled on new medications by clinical pharmacy specialist Hunter. Medications at Discharge Home Medications acetaminophen 500 mg tablet 1,000 mg PO Q6H PRN headache 09/09/23 insulin glargine 100 unit/mL (3 mL) subcutaneous pen (Lantus Solostar U-100 Insulin) 10 unit (0.1 mL) subcut QPM #15 mL 09/10/23 metformin 500 mg tablet 500 mg PO BIDCM #60 tabs 09/10/23
--- NOTE | 2023-09-10 12:43 | CASEMGMT ---
Addendum entered by Williams Meneses 09/10/23 14:24: JOSE BARRERA spoke w/pt's son, who states he can pick pt up @ 3 PM today to take pt home. Pt provided w/script for glucometer and insulin pen needles and instructed to take to his pharmacy to get these items. Pt states he will take pt to his job @ 5 PM and then can go to [facility] afterwards to get his medications, glucometer/supplies, and insulin pen needles today. Further questions answered. JOSE BARRERA spoke Violeta @ Dr Carter's office. They have received the New Patient Intake form. Appt scheduled young/Dr Carter 09/16 @ 11:40 AM. This was included in pt's discharge plan. Pt made aware of appt and voices appreciation. Original Note: RN?CM?PAINTER PLATE?CM?to room to meet with patient for initial transition planning/care coordination?assessment.?RN?CM?introduced self and role at [facility].? Pt voices understanding and consents to?assessment?at this time.? Pt sitting in bed in no distress at this time.? Pt is A/O at this time and answers all questions appropriately.?? Care providers, pharmacy, and demographics verified/updated at this time. PCP: No PCP. Pt states he used to see Dr Silverman. He would like to see Dr Carter @ [place], as this is where his goes. New Patient Intake form completed and faxed to [place]. Awaiting call back from them re: if Dr Carter will accept pt. Specialists: none [facility] Insurance: Michele BARTON Prescription Benefit:?Yes, [employer] LNOK: , Kaylyn. Son, Lenny. Pt also has another adult child Living Arrangements: Lives w/ and 34-yr-old son, Lenny, in 2-story home w/1 step to enter. Bedroom is on 2nd floor as well as 2 bathrooms and there is a bathroom on the main floor also. Pt states he is independent w/ADL's. Pt and share home mngt tasks. Transportation:?Pt states drives self and states no transportation concerns at this time.? and son also drive. DME: ? Denies using any DME. Pt will need a glucometer @ discharge. Will obtain a script and provide to pt. Pt made aware. Many questions answered re: glucometer and insulin. Pt voices appreciation. RN HOLLY also recommended he have pharmacist @ [facility] go over the glucometer w/him when he picks it up and he voices appreciation of this and states he plans to do this. HHC/SNF: No hx of either. Discussed CCN and Pt Link w/pt for new DM. Pt agreeable to a referral. Order placed. Call to Zhou @ [facility] and she was made aware of new referral. Pt wishes to return home and states has no further concerns with going home at time of discharge.? CM?to follow for any further discharge planning/needs.? Pt voices no further concerns/needs at this time.? Advised pt to ask for?CM?if any further questions/concerns/needs arise.? Voices understanding. PLAN:??Home w/CCN referral. Script to be provided for glucometer w/supplies. Alek MONTOYAN?RN?CM
--- NOTE | 2023-09-10 14:51 | DS.PCM_ITS ---
Providers Date of Admission: 09/09/23 Date of Discharge: 09/10/23 Primary Care Physician: Dr. José Manuel Carter MD Reason For Visit: HYPERGLYCEMIA IN A NEW DIAGNOSED DIABETIC Diagnosis Discharge Diagnosis (1) Hyperglycemia due to diabetes mellitus: Status: Acute Code(s): E11.65 - Type 2 diabetes mellitus with hyperglycemia Plan #Hyperglycemia due to newly diagnosed diabetes mellitus * admit to med surg * admitted with complaints of generalised malaise, frequency, polyuria and polydipsia. * A1C is 12/3 nad blood glucose is 581. * bicarb is 26 * hydrate aggressively with iVF NS @ 150cc/hr * give SQ lispro 15 units x 1 and recheck in an hour. Hold of on insulin drip for now * will need to be started on metformin nad SQ lantus once hyperglycemia resolves. * #Elevated BP * BP is up in the 180s systolic. Not a known hypertensive but he has not followed with his PCP in over a year. * IV hydralazine 10 mg every 6 hours as needed. If blood pressure remains elevated will start on oral medication. * Prophylaxis: Lovenox CODE STATUS: Full code Medications at Discharge Home Medications acetaminophen 500 mg tablet 1,000 mg PO Q6H PRN headache 09/09/23 insulin glargine 100 unit/mL (3 mL) subcutaneous pen (Lantus Solostar U-100 Insulin) 10 unit (0.1 mL) subcut QPM #15 mL 09/10/23 metformin 500 mg tablet 500 mg PO BIDCM #60 tabs 09/10/23 Hospital Course Operations None Procedures None Summary of Care Provided Minutes Spent on Discharge: 55 Hospital Course: KATHY GANDHI, is a 68 M with no significant PMH who presents with a complaint of dizziness, lightheadedness, polyuria, polydipsia and shortness of breath. His symptoms have been ongoing for about 3 days prior to admission. He saw his PCP last about a year ago. He has been getting care from an urgent care facility. He denied any palpitations, dizziness, abdominal pain, nausea or vomiting or any other symptoms. Review of systems is otherwise negative. Vitals in the ED were BP of 187/105, OK of 110, RR of 16 and temp of 97.9F. He was saturating at 95% on room air. CBC was unremarkable. BMP was significant for sodium of 132 and glucose of 581. A1C checked in ED was 12.3. EKG showed no acute ST changes and CXR showed no acute cardiopulmonary process. He was admitted to be managed for hyperglycemia due to newly diagnosed diabetes. He was started on IVF and subcu Lantus as well as metformin. Patient did not require drip as blood sugars trended down with hydration and subcu insulin lispro. Anion gap was not elevated and bicarb was 26 with normal anion gap. Patient's blood sugar control improved. He was placed on Lantus 10 units daily as well as metformin 500 twice daily. Nutrition and diabetes educators were consulted and the counseled patient about appropriate diet and how to administer insulin. He improved more quickly than expected. HE was therefor dicscharged home on 09/10/2023. He is to follow up with his PCP and was referred to [facility] to establish care for his diabetes. Patient seen and examined prior to discharge. He had no active complaints and felt well. He had an uneventful night. Review of systems was otherwise negative. Labs and vitals reviewed. Home meds reviewed and reconciled. Physical Exam Const alert, oriented x3 and no apparent distress Constitutional Narrative: morbidly obese General Appearance: cooperative HEENT normocephalic, head/scalp atraumatic, hearing grossly normal bilaterally, moist oral mucous membranes and oropharynx normal Mouth: oral and palatal mucosa normal Eyes PERRL, EOMs intact bilaterally and conjunctivae normal Neck no lymphadenopathy and supple Lymph Lymphatic: no lymphadenopathy noted and no lymphedema noted Resp normal respiratory effort, normal air movement and clear to auscultation bilaterally Cardio regular rate, regular rhythm, S1 normal heart sound, S2 normal heart sound and no murmurs GI normal to inspection, nondistended, normoactive bowel sounds, soft to palpation, non-tender and non-distended Extremity normal to inspection, full ROM, normal capillary refill, no clubbing, cyanosis or edema and no calf tenderness General Extremity: no tenderness to palpation of joints or extremities Skin no rashes or lesions noted General Skin Exam: no breakdown and turgor normal Neuro CN's II-XII intact bilaterally, no focal motor deficits, no sensory deficits noted and deep tendon reflexes 2+ bilaterally Sensorium / Orientation: awake and alert Motor Exam: strength 5/5 throughout and general weakness Psych thought process normal and cooperative Appearance: appropriate Weight / BMI Weight Weight: 322 lb 0.009 oz Body Mass Index (BMI) 44.9 ABG / Lab / Microbiology Data 09/10/23 06:34 09/10/23 06:34 Laboratory: Laboratory Results - last 24 hr 09/09/23 16:22: POC Glucose > 500 H* 09/09/23 21:38: POC Glucose 202 H 09/10/23 06:06: POC Glucose 293 H 09/10/23 06:34: WBC 6.3, RBC 4.81, Hgb 14.4, Hct 43.9, MCV 91.3, MCH 29.9, MCHC 32.8, RDW Std Deviation 45.9 H, RDW Coeff of Mo 13.7, Plt Count 219, MPV 9.5, I mmature Gran % (Auto) 2.400 H, Neut % (Auto) 60.2, Lymph % (Auto) 25.6, [place] % (Auto) 8.5, Eos % (Auto) 2.4, Baso % (Auto) 0.9, Absolute Neuts (auto) 3.8, Absolute Lymphs (auto) 1.62, Nucleated RBC % 0, Sodium 137, Potassium 3.6, Chloride 106, Carbon Dioxide 27.0, Anion Gap 4 L, BUN 21 H, Creatinine 0.71, Estim Creat Clear Calc 74.25, Est GFR (MDRD) Af Amer 142, Est GFR (MDRD) Non-Af 117, BUN/Creatinine Ratio 29.7 H, Glucose 293 H, Calcium 8.1 L, Triglycerides 147, Cholesterol 187, LDL Cholesterol 122, VLDL Cholesterol 29, HDL Cholesterol 36 L 09/10/23 10:15: POC Glucose 239 H D/C Instructions Discharge Diet: Low fat / Low cholesterol Discharge Activity: Return to Normal Activity Weight Bearing Status: Weight bearing as tolerated Call your doctor if you observe: Fever of 101 or Higher, Shortness of breath, Dizziness, Swelling in the ankles, Chest pain and Increased palpitations (irregular heartbeat) Meaningful Use Info Meaningful Use Diagnoses (Choose all that apply): None applicable Discharge Plan Admission Admit Date/Time: 09/09/23 10:46 Primary Reason for Your Visit: hyperglycemia in a newly diagnosed diabetic Attending Provider: Ann-Marie Johnson Primary Care Provider: José Manuel Carter Instructions Patient Instructions: Do You Have Diabetes?, ED Hyperglycemia New Susp Diabetes Discharge Orders/Prescriptions Prescriptions: New metformin 500 mg Tablet 500 mg PO BIDCM Qty: 60 2RF insulin glargine [Lantus Solostar U-100 Insulin] 100 unit/mL (3 mL) insulin pen 10 unit subcut QPM Qty: 15 2RF Continued acetaminophen 500 mg tablet 1,000 mg PO Q6H PRN (Reason: headache) Referrals / Follow Up: José Manuel Carter MD [Primary Care Provider] - 09/16/23 11:40 am (Please arrive 15-30 min early. ) Danny Fitzgerald MD [Med Staff - Courtesy Staff] - Within 2 Weeks Disposition Disposition (needs filled in before D/C Order can be placed): Home, Self Care Charges/Coding Visit Charges Inpatient E&M: 55886 Disch Hosp >30min
--- NOTE | 2023-09-10 14:51 | DCINST_ITS ---
Discharge Instructions Diet Discharge Diet: Low fat / Low cholesterol Activity Discharge Activity: Return to Normal Activity Weight Bearing Status: Weight bearing as tolerated Dressing / Incision Call your doctor if you observe: Fever of 101 or Higher, Shortness of breath, Dizziness, Swelling in the ankles, Chest pain and Increased palpitations (irregular heartbeat) Follow Up Care Test Results: Test results from this visit will be discussed in further detail at your follow- up appointment, if applicable. Discharge Plan Admission Admit Date/Time: 09/09/23 10:46 Primary Reason for Your Visit: hyperglycemia in a newly diagnosed diabetic Attending Provider: Ann-Marie Johnson Primary Care Provider: José Manuel Carter Instructions Patient Instructions: Do You Have Diabetes?, ED Hyperglycemia New Susp Diabetes Discharge Orders/Prescriptions Prescriptions: New metformin 500 mg Tablet 500 mg PO BIDCM Qty: 60 2RF insulin glargine [Lantus Solostar U-100 Insulin] 100 unit/mL (3 mL) insulin pen 10 unit subcut QPM Qty: 15 2RF Continued acetaminophen 500 mg tablet 1,000 mg PO Q6H PRN (Reason: headache) Referrals / Follow Up: José Manuel Carter MD [Primary Care Provider] - 09/16/23 11:40 am (Please arrive 15-30 min early. ) Danny Fitzgerald MD [Med Staff - Courtesy Staff] - Within 2 Weeks Disposition Disposition (needs filled in before D/C Order can be placed): Home, Self Care
--- NOTE | 2023-09-24 11:00 | CCN.REFER ---
PATIENT DECLINES CCN. STATES HE DOES NOT WANT OR NEED ANYONE TO MAKE A HOME VISIT. EDUCATION PROVIDED ON IMPORTANCE OF HAVING CCN SINCE HE IS A NEW DIABETIC. PATIENT CONTINUES TO DECLINE.
== END 2023-09-10 14:59 | disposition home or self-care (01) | DRG 639 ==
LOC: ED 10:29 → PCU 11:07
PROVIDERS: Admitting Provider Student in an Organized Health Care Education/Training Program; Emergency Provider Student in an Organized Health Care Education/Training Program; PCP Family Medicine; Visit Provider Student in an Organized Health Care Education/Training Program
DX: E11.65 Type 2 diabetes mellitus with hyperglycemia (principal); R03.0 Elevated blood-pressure reading, without diagnosis of hypertension; Z79.4 Long term (current) use of insulin; Z66 Do not resuscitate
CPT/HCPCS: 71045; 80048; 80053; 80061; 81001; 82009; 82962; 83036; 83735; 83880; 84484; 85025; 93005; 97802; 97803; 99285; J7030

== ENCOUNTER 2023-09-16 12:50 | Outpatient (CLI) | payer MEDICARE, OTHER, SELFPAY ==
[2023-09-16 16:52] LABS: ALB/GLOB Ratio 0.9 RATIO (0.9-2.4); AST(SGOT) 37 U/L (15-37); Alanine Aminotransfer ALT/SGPT 57 U/L (16-61); Albumin, Serum 3.4 g/dL (3.2-5.0); Alkaline Phosphatase 102 U/L (45-117); Anion Gap 8 (5-15); BUN 12 mg/dL (7-18); BUN/Creat Ratio 16.1 RATIO (10-20); Chloride 104 mmol/L (98-107); Cholesterol 182 mg/dL (200); Creatinine, Serum 0.74 mg/dL (0.70-1.30); EST Glomerular Filtration Rate 110 mL/min (>60); Est Glom Filt Rate - Afr Amer 134 mL/min (>60); Globulin 3.9 g/dL (2.2-4.2); Glucose 220 mg/dL (74-106); High Density Lipoprotein 46 mg/dL; Protein, Total 7.3 g/dL (6.4-8.2); Sodium Level 137 mmol/L (136-145)
== END 2023-09-16 23:59 | disposition home or self-care (01) ==
PROVIDERS: PCP Family Medicine; Referring Provider Family Medicine; Visit Provider Family Medicine
DX: E11.65 Type 2 diabetes mellitus with hyperglycemia (principal)
CPT/HCPCS: 80053; 82465; 83718

== ENCOUNTER → 2023-10-28 | Outpatient (CLI) | payer MEDICARE, OTHER, SELFPAY ==
[2023-10-28 09:58] LABS: Absolute Lymphocyte Count 1.81 X10^3/uL (0.83-4.51); Absolute Neutrophil Count 7.3 X10^3/uL (2.0-7.7); Basophil# 0.03 X10^3/uL; Basophil% 0.3 % (0-1); Eosinophil# 0.05 X10^3/uL; Eosinophils% 0.5 % (0-5); Hematocrit 45.1 % (40-54); Hemoglobin 14.6 g/dL (13.0-16.5); Lymphocyte # 1.81 X10^3/ul (0.83-4.51); Lymphocyte % 18.2 % (19-41); Mean Corp Hgb Conc 32.4 g/dL (32-36); Mean Corpuscular Volume 92.8 fL (80-94); Mean Platelet Vol. 9.4 fl (6.2-12.0); Monocyte# 0.73 X10^3/uL; Monocyte% 7.4 % (0-10); NRBC Flagged by Analyzer 0 % (0-5); Neutrophil # 7.25 X10^3/uL (2.7-7.7); Platelet Count 282 K/mm3 (150-450); RBC Distribution Width CV 13.3 % (11.6-14.6); RBC Distribution Width SD 45.5 fl (35.1-43.9); Red Blood Count 4.86 M/mm3 (4.6-6.2); White Blood Count 9.9 K/mm3 (4.4-11.0)
[2023-10-28 10:11] LABS: Vitamin B12 206 pg/mL (211-911)
[2023-10-28 11:36] LABS: ALB/GLOB Ratio 0.8 RATIO (0.9-2.4); AST(SGOT) 15 U/L (15-37); Alanine Aminotransfer ALT/SGPT 22 U/L (16-61); Albumin, Serum 3.2 g/dL (3.2-5.0); Alkaline Phosphatase 78 U/L (45-117); Anion Gap 8 (5-15); BUN 18 mg/dL (7-18); BUN/Creat Ratio 22.1 RATIO (10-20); Calcium,Total 9.3 mg/dL (8.5-10.1); Chloride 107 mmol/L (98-107); Cholesterol 140 mg/dL (200); Creatinine, Serum 0.81 mg/dL (0.70-1.30); EST Glomerular Filtration Rate 100 mL/min (>60); Est Glom Filt Rate - Afr Amer 121 mL/min (>60); Globulin 4.1 g/dL (2.2-4.2); Glucose 140 mg/dL (74-106); High Density Lipoprotein 47 mg/dL; Magnesium 2.2 mg/dL (1.6-2.6); PSA,Total - Annual Screen 1.64 ng/mL (0.00-4.00); Potassium 3.8 mmol/L (3.5-5.1); Protein, Total 7.3 g/dL (6.4-8.2); Sodium Level 139 mmol/L (136-145); Thyroid Stim Hormone (TSH) 2.67 uIU/mL (0.358-3.74); Triglycerides 70 mg/dL; Very Low Density Lipoprotein 14 mg/dL (5-40)
== END | disposition home or self-care (01) ==
PROVIDERS: PCP Family Medicine; Visit Provider Family Medicine
DX: R51.9 Headache, unspecified (principal); E11.65 Type 2 diabetes mellitus with hyperglycemia; E66.01 Morbid (severe) obesity due to excess calories; Z12.5 Encounter for screening for malignant neoplasm of prostate; Z79.899 Other long term (current) drug therapy
CPT/HCPCS: 36415; 80053; 80061; 82607; 82746; 83735; 84153; 84443; 85025; G0103

== ENCOUNTER 2024-09-14 17:44 | Emergency (ER) | payer MEDICARE, OTHER, SELFPAY ==
[2024-09-14 17:45] VITALS: BP 144/83; PULSE 107; RESP 19; TEMP 36.2; O2SAT 98; BMI 38.0
[2024-09-14 21:01] LABS: Bacteria 0 SEEN /hpf (None Seen); Mucous, Urine 0 SEEN /hpf (<or=2+)
[2024-09-14 21:03] LABS: Color, Urine Yellow (Yellow); Glucose, Dipstick Normal (Normal); Ketone-Dipstick 5 mg/dl (Negative); Leukocyte Esterase-Dipstick 25 /ul (Negative); Nitrite-Dipstick Negative (Negative); Occult Blood-Urine Negative /ul (Negative); Protein-Dipstick 15 mg/dl (Negative); Urine Bilirubin Dipstick Negative (Negative); Urine Clarity Clear (Clear); Urine Urobilinogen 1 mg/dl (Normal)
--- NOTE | 2024-09-14 21:09 | EX.ED.GUMALE ---
HPI History of Present Illness Chief Complaint: Complaint Informant: patient Narrative Narrative: Patient states since he woke up this morning about 12 hours prior to evaluation he has had burning dysuria as well as groin pain which he means to be pain right above the penis. It hurts when he goes to urinate as well. He feels like he is not emptying, and going small amounts frequently throughout the day. He denies any scrotal or testicular pain. No nausea, vomiting, flank pain, back pain, fevers or chills. No hematuria. No history of kidney stones or urinary issues in the past. Never had this happen before. He states his doctor has done PSA test on him in the past and they have been normal. States he had a kidney infection about a year ago for unknown reasons and ever since he has been swabbing his penis with isopropanol every time he urinates. That is no different he denies any other chemical exposures or any other substance to the genital area. [facility] Medical History Hyperglycemia due to diabetes mellitus Home Medications ?Medication ?Instructions ?Recorded ?Last Taken ?Type acetaminophen 500 mg tablet 1,000 mg PO Q6H PRN headache 09/09/23 09/09/23 History insulin glargine 100 unit/mL (3 10 unit (0.1 mL) subcut QPM #15 mL 09/10/23 Unknown Rx mL) subcutaneous pen (Lantus Solostar U-100 Insulin) metformin 500 mg tablet 500 mg PO BIDCM #60 tabs 09/10/23 Unknown Rx ciprofloxacin HCl 500 mg tablet 500 mg PO BID #28 TABLETS 09/14/24 Unknown Rx tamsulosin 0.4 mg capsule (Flomax) 0.4 mg PO DAILY #14 caps 09/14/24 Unknown Rx Allergy/AdvReac Type Severity Reaction Status Date / Time No Known Allergies Allergy Verified 09/09/23 08:41 Social History Smoking Status: Never smoker ROS ROS ED Constitutional Constitutional ED: Denies chills or fever(s) Eyes Eyes: Denies change in vision or diplopia ENT ENT ED: Denies rhinorrhea or sore throat Cardiovascular Cardiovascular: Denies chest pain or palpitations Respiratory/Chest Respiratory/Chest: Denies cough or dyspnea Gastrointestinal Gastrointestinal: Reports abdominal pain; Denies diarrhea, nausea or vomiting Genitourinary Genitourinary ED: Reports dysuria; Denies flank pain or hematuria Musculoskeletal Musculoskeletal: Denies back pain or neck pain Integumentary Denies abscess or rash Neurologic Neurologic: Denies headache(s), paresthesias or weakness Psychiatric Psychiatric: Denies anxiety or suicidal thoughts EXAM Physical Exam Const Vital Signs: 09/14/24 17:45 Temperature 97.2 F L Temperature Source Temporal Pulse Rate 107 H Respiratory Rate 19 H Blood Pressure 144/83 H Blood Pressure Mean 103 Pulse Ox 98 Oxygen Delivery Method Room Air Positive well nourished, well developed and obese General Appearance ED: well developed and NAD Nutritional Appearance: obese HEENT Reports moist mucous membranes normocephalic and atraumatic Eyes PERRL and EOMs intact bilaterally Neck full ROM and supple Resp normal respiratory effort and clear to auscultation bilaterally Cardio regular rate, regular rhythm and no murmurs GI non-tender and non-distended Auscultation: normoactive bowel sounds Palpation: soft no CVA tenderness Narrative: Normal penis. Normal glans. No urethral discharge or blood. No reproducible pain suprapubic, no testicular tenderness or gross abnormality. No palpable hernias examined while standing. Back/Spine no CVA tenderness General Back: other FROM Extremity normal to inspection General Extremety ED: Negative for edema, pulses abnormal or tenderness General Extremity: Negative for edema or pulses abnormal Neuro oriented x3, CN's II-XII intact bilaterally and no sensory deficits noted Sensorium / Orientation: awake and alert Motor Exam: strength 5/5 throughout Skin no rashes or lesions noted and no wounds MDM MDM MDM Narrative Medical decision making narrative: Urinalysis shows no occult blood, negative for nitrite positive for trace amount of leukocyte esterase, on the micro there is some urinary amorphous sediment but no pyuria and no bacteria making infection much less likely here. I had nursing perform a postvoid residual via ultrasound on the patient. It was very low, ruling out acute urinary retention. I do not think a CT or blood work is going to help diagnose this patient's urinary issue, it sounds urethral and/or bladder. I am going to send his urine for culture to rule out infection which I think will be negative, and not put him on empiric antibiotics but rather put him on Flomax until he can follow-up with urology. Prostate issues are in the differential here as well, but he is not having perineum pain or issues/pain with bowel movements. I discussed this with urology Dr. Peraza, he suggests that his history does suggest acute prostatitis and to treat him empirically with antibiotics and have him follow-up. I will put him on 2 weeks of Cipro given that recommendation as well as Flomax. Lab Data Attestation: I reviewed the patient's lab results. Labs: Laboratory Results - last 24 hr 09/14/24 20:20 Urine Color Yellow Urine Clarity Clear Urine pH 6.0 Ur Specific [place] 1.020 Urine Protein 15 H Urine Glucose (UA) Normal Urine Ketones 5 H Urine Occult Blood Negative Urine Nitrite Negative Urine Bilirubin Negative Urine Urobilinogen 1 H Ur Leukocyte Esterase 25 H Urine RBC 0-5 SEEN Urine WBC 0-5 SEEN Ur Squamous Epith Cells 0-5 SEEN Amorphous Sediment 1+ URATE Urine Bacteria 0 SEEN Urine Mucus 0 SEEN Management Discussion w/another healthcare provider: Accreditation Coordinator (Urology Dr. Peraza) Discharge Plan Triage Chief Complaint: Complaint ED Provider: Bobby Shin Dx/Rx/DC Orders Clinical Impression: Difficulty urinating Instructions: Prostate Problems and Related Urinary Symptoms, ED Prostatitis Prescriptions: New ciprofloxacin HCl 500 mg tablet 500 mg PO BID Qty: 28 0RF tamsulosin [Flomax] 0.4 mg capsule 0.4 mg PO DAILY Qty: 14 0RF No Action acetaminophen 500 mg tablet 1,000 mg PO Q6H PRN (Reason: headache) metformin 500 mg Tablet 500 mg PO BIDCM Qty: 60 2RF insulin glargine [Lantus Solostar U-100 Insulin] 100 unit/mL (3 mL) insulin pen 10 unit subcut QPM Qty: 15 2RF Primary Care Provider: José Manuel Carter Referrals: José Manuel Carter MD [Primary Care Provider] - Gary Peraza MD [Med Staff - Active Staff] - As soon as possible Print Language: Ivorian Disposition Disposition: Home, Self Care
[2024-09-14 21:12] LABS: Amorphous Sediment 1+ URATE; Red Blood Cells-Urine 0-5 SEEN /hpf (0-5); Squamous Epithelial Cells - UA 0-5 SEEN /hpf (0-5); White Blood Cells 0-5 SEEN /hpf (0-5)
[2024-09-14] MEDS: Ciprofloxacin 500 MG Tablet PO (22:03)
== END 2024-09-14 22:19 | disposition home or self-care (01) ==
PROVIDERS: Emergency Provider Emergency Medicine; PCP Family Medicine; Visit Provider Emergency Medicine
DX: R39.198 Other difficulties with micturition (principal); E11.9 Type 2 diabetes mellitus without complications; Z79.4 Long term (current) use of insulin; Z79.84 Long term (current) use of oral hypoglycemic drugs
CPT/HCPCS: 81001; 99282